=== PATIENT | female | born 1985 | race Caucasian/White ===

== ENCOUNTER 2020-11-26 09:00 | Inpatient (IN) | payer BC ==
[~2020-11-26] VITALS: Ht 154.9 cm; Wt 79.4 kg
--- NOTE | 2020-11-26 09:40 | NUR ---
BOTH NARES SWABBED FOR COVID-19 WITHOUT COMPLICATION. SAMPLE TAKEN TO [facility] FOR RAPID TESTING.
--- NOTE | 2020-11-28 08:36 | PR ---
[facility] [address], [place] [address] Signed PP Progress Notes Datetime Report Generated by CPN: 11/28/2020 08:36 SUBJECTIVE: [id number] Pain: Within Normal Limits Pain Comments: Very little BM and significant pain Flatus: Yes Bowel Movement: Yes Vital Signs: [id number] Vital Signs: Reviewed; Within Normal Limits EXAM: Ongoing Cardiovascular: Not Done Respiratory: Not Done Abdomen/Uterus: Abnormal Lochia: Normal Vulva/Perineum: Not Done Breasts: Not Done CVA Tenderness: Not Done Extremities: Normal Incision: Not Applicable Progress: Abnormal Exam Comments: Fundus firm, NT @ U-2. H/H 12.9/38, WBC 17.4, plat 181k IMPRESSION/PLAN/PROCEDURES: [id number] Impression: Normal Progression; Pain Other Plans: sitz baths Progress Notes: Doing OK except for pain with BMs and very constipated. I do not wish her to push with BMs as that will increase her pain further. Added Datdremul and MOM last night so this will hopefully be helpful. Ideally, she will be able to be D/Cd home later today. Signing Physician: Gladys Elkins MD Copies: ~ *Electronically Signed* 11/28/20 0836 GLADYS ELKINS MD PATIENT NAME: MILA MALDONADO PROGRESS NOTE DATE OF : 81 PHYSICIAN: GLADYS ELKINS MD RPT #: [id number] REPORT IS CONFIDENTIAL AND NOT TO BE RELEASED WITHOUT AUTHORIZATION
== END 2020-11-28 21:10 | disposition home or self-care (01) | DRG 807 ==
LOC: FBC 09:00
PROVIDERS: ADMIT Obstetrics & Gynecology; ATTEND Obstetrics & Gynecology
PROC: 10907ZC Drainage of Amniotic Fluid, Therapeutic from Products of Conception, Via Natural or Artificial Opening (ICD-10-PCS; 2020-11-26)
PROC: 00HU33Z Insertion of Infusion Device into Spinal Canal, Percutaneous Approach (ICD-10-PCS; 2020-11-26)
PROC: 3E0R3BZ Introduction of Anesthetic Agent into Spinal Canal, Percutaneous Approach (ICD-10-PCS; 2020-11-26)
PROC: 10E0XZZ Delivery of Products of Conception, External Approach (ICD-10-PCS; principal; 2020-11-27)
PROC: 0KQM0ZZ Repair Perineum Muscle, Open Approach (ICD-10-PCS; 2020-11-27)
DX: O41.03X0 Oligohydramnios, third trimester, not applicable or unspecified (principal); Z37.0 Single live birth; Z3A.40 40 weeks gestation of pregnancy; Z20.822 Contact with and (suspected) exposure to COVID-19; O24.420 Gestational diabetes mellitus in childbirth, diet controlled; O70.1 Second degree perineal laceration during delivery; O99.63 Diseases of the digestive system complicating the puerperium; K59.00 Constipation, unspecified
CPT/HCPCS: 01960; 36415; 85027; 86850; 86900; 86901; A9270; C9803; J2590; J2795; J3010; J7121; U0003

== ENCOUNTER 2022-10-10 06:12 | Emergency (ER) | payer BC ==
[~2022-10-10] VITALS: Ht 152.4 cm; Wt 79.4 kg
[2022-10-10] MEDS ORDERED: PRENATAL MULTI1 EAC5 PO (06:22)
[2022-10-10] MEDS ORDERED: HYDROCODON-ACE1 EA11 PO (08:01)
== END 2022-10-10 09:02 | disposition home or self-care (01) ==
LOC: ED 06:12
DX: O02.1 Missed abortion (principal); O09.521 Supervision of elderly multigravida, first trimester; Z3A.11 11 weeks gestation of pregnancy
CPT/HCPCS: 36415; 76801; 80053; 84702; 85025; 86900; 86901; 96372; 99284-25; J2790

== ENCOUNTER 2024-11-23 16:52 | Inpatient (IN) | payer BC ==
[~2024-11-23] VITALS: Ht 154.9 cm; Wt 76.2 kg
[~2024-11-23 16:52] MED LIST: HYDROCODON-ACE1 EA11 PO; PRENATAL MULTI1 EAC5 PO
[2024-11-23] MEDS ORDERED: MAGNESIUM HYDROXIDE/AL HYDROX 30 ML CUP PO PRN (18:15)
[2024-11-23] MEDS ORDERED: OXYTOCIN/0.9 % SODIUM CHLORIDE 30 UNITS/500 ML BAG IV SCH ×2 (18:15→20:15)
[2024-11-23] MEDS ORDERED: LACTATED RINGER'S 1,000 ML IV SCH (18:15)
[2024-11-23] MEDS ORDERED: CALCIUM CARBONATE 500 MG CHEW PO PRN (18:15)
[2024-11-23] MEDS ORDERED: LIDOCAINE 2% VISCOUS 6 ML SYR TOP ONE ×2 (18:15)
[2024-11-23] MEDS ORDERED: LACTATED RINGER'S 1,000 ML IV PRN (18:15)
[2024-11-23] MEDS ORDERED: fentaNYL citrate 100 MCG/2 ML VIAL IV PRN (18:15)
[2024-11-23 18:19] LABS: BASOPHILS 0.3 % (0-2); EOSINOPHILS 0.4 % (0-6); HEMATOCRIT 41.4 % (35.0-50.0); HEMOGLOBIN 14.6 g/dL (12.0-18.0); MCH 31.8 (27-36); MCHC 35.2 g/dl (30-36); MCV 90.5 fl (81-99); MONOCYTES 5.4 % (0-12); NEUTROPHILS 72.9 % (39-80); PLATELET COUNT 199 K/uL (140-440); RBC 4.58 M/ul (4.3-5.7); RDW 13.6 (10.5-15.0)
[2024-11-23] MEDS ORDERED: miSOPROStoL 25 MCG TAB PV SCH (18:30)
[2024-11-23 18:48] VITALS: BP 135/95
[2024-11-23 19:38] LABS: ABO A; ANTIBODY SCREEN POSITIVE; RH NEGATIVE
[2024-11-23 19:39] LABS: ANTIBODY IDENTIFICATION ANTI-D
[2024-11-23 20:45] LABS: AMPHETAMINES, URINE NEGATIVE (NEGATIVE); BARBITURATES, URINE NEGATIVE (NEGATIVE); BENZODIAZEPINE, URINE NEGATIVE (NEGATIVE); BUPRENORPHINE, URINE NEGATIVE (NEGATIVE); CANNABINOID, URINE NEGATIVE (NEGATIVE); COCAINE, URINE NEGATIVE (NEGATIVE); ECSTASY, URINE NEGATIVE (NEGATIVE); FENTANYL, URINE NEGATIVE (NEGATIVE); METHADONE, URINE NEGATIVE (NEGATIVE); OPIATES, URINE NEGATIVE (NEGATIVE); OXYCODONE, URINE NEGATIVE (NEGATIVE); PHENCYCLIDINE, URINE NEGATIVE (NEGATIVE)
[2024-11-24] MEDS ORDERED: ROPIVACAINE 0.2% 200 ML BAG ONE (12:54)
[2024-11-24] MEDS ORDERED: fentaNYL citrate 100 MCG/2 ML VIAL ONE (12:54)
[2024-11-24] MEDS ORDERED: LACTATED RINGER'S 500 ML IV PRN (13:00)
[2024-11-24] MEDS ORDERED: ePHEDrine sulfate 5 MG/ML SYRINGE IV PRN (13:00)
[2024-11-24] MEDS ORDERED: LACTATED RINGER'S 2,000 ML IV ONE (13:00)
[2024-11-24] MEDS ORDERED: ROPIVACAINE 0.2% 200 ML BAG EPIDURAL SCH (13:00)
[2024-11-24] MEDS ORDERED: OXYTOCIN/0.9 % SODIUM CHLORIDE 500 ML IV SCH ×2 (14:45→17:15)
[2024-11-24] MEDS ORDERED: BENZOCAINE 60 ML AEROSOL TOP PRN (17:15)
[2024-11-24] MEDS ORDERED: MAGNESIUM HYDROXIDE 30 ML UDC PO PRN (17:15)
[2024-11-24] MEDS ORDERED: LIDOCAINE 2% VISCOUS 6 ML SYR TOP ONE (17:15)
[2024-11-24] MEDS ORDERED: HYDROCORTISONE ACETATE 25 MG SUPP PR PRN (17:15)
[2024-11-24] MEDS ORDERED: WITCH HAZEL/GLYCERIN 1 EA PAD TOP PRN (17:15)
[2024-11-24] MEDS ORDERED: IBUPROFEN 600 MG TAB PO PRN (17:15)
[2024-11-24] MEDS ORDERED: ACETAMINOPHEN 325 MG TAB PO PRN (17:15)
[2024-11-24] MEDS ORDERED: SENNOSIDES/DOCUSATE 1 EA TAB PO SCH (21:00)
== END 2024-11-26 14:10 | disposition home or self-care (01) | DRG 807 ==
LOC: FBCO 16:52 → FBC 17:47
PROVIDERS: ADMIT Obstetrics & Gynecology; ATTEND Obstetrics & Gynecology
PROC: 10E0XZZ Delivery of Products of Conception, External Approach (ICD-10-PCS; principal; 2024-11-24)
PROC: 10907ZC Drainage of Amniotic Fluid, Therapeutic from Products of Conception, Via Natural or Artificial Opening (ICD-10-PCS; 2024-11-24)
PROC: 0HQ9XZZ Repair Perineum Skin, External Approach (ICD-10-PCS; 2024-11-24)
PROC: 3E0DXGC Introduction of Other Therapeutic Substance into Mouth and Pharynx, External Approach (ICD-10-PCS; 2024-11-24)
PROC: 3E0R3BZ Introduction of Anesthetic Agent into Spinal Canal, Percutaneous Approach (ICD-10-PCS; 2024-11-24)
PROC: 00HU33Z Insertion of Infusion Device into Spinal Canal, Percutaneous Approach (ICD-10-PCS; 2024-11-24)
DX: O36.5930 Maternal care for other known or suspected poor fetal growth, third trimester, not applicable or unspecified (principal); Z37.0 Single live birth; Z3A.38 38 weeks gestation of pregnancy; O69.81X0 Labor and delivery complicated by cord around neck, without compression, not applicable or unspecified; Z91.048 Other nonmedicinal substance allergy status; Z79.899 Other long term (current) drug therapy; O70.0 First degree perineal laceration during delivery
CPT/HCPCS: 01960; 36415; 80307; 85025; 86850; 86870; 86900; 86901; A9270; J7121